=== PATIENT | female | born 1940 | race Two or more races ===

== ENCOUNTER 2023-12-05 23:30 | Observation (INO) | payer OTHER ==
[2023-12-06] MEDS ORDERED: ACETAMINOPHEN 325 MG TABLET (FP) ONE (00:55)
[2023-12-06] MEDS: ACETAMINOPHEN 500 MG TABLET (FP) PO ONE (01:00)
[2023-12-06 05:52] LABS: BASO % 0.5 % (0-2.0); EOS % 2.3 % (0-4.5); HEMOGLOBIN 12.9 GM/dL (10.7-15.3); INR 1.25 (0.83-1.09); LYMPH % 31.2 % (8-40); MCH 27.9 pg (25.7-33.7); MCHC 33.1 g/dl (32.0-36.0); MEAN CELL VOLUME 84.3 fl (80-96); MEAN PLT VOLUME 9.5 fl (7.5-11.1); MONO % 10.6 % (3.8-10.2); NEUT % 55.4 % (42.8-82.8); PLATELET COUNT 185 10^3/uL (134-434); PROTHROMBIN TIME (PATIENT) 14.3 SEC (9.7-13.0); RBC 4.62 M/mm3 (3.60-5.2); RDW 14.5 % (11.6-15.6); WHITE BLOOD COUNT 10.2 K/mm3 (4.0-10.0)
[2023-12-06 05:55] LABS: ACTIVATED PTT 32.4 SECONDS (25.2-36.5)
[2023-12-06 06:12] LABS: POTASSIUM 4.8 mmol/L (3.5-5.1)
[2023-12-06 06:15] LABS: ALBUMIN 3.2 g/dl (3.4-5.0); BLOOD UREA NITROGEN 22.9 mg/dL (7-18)
[2023-12-06 06:20] LABS: BILIRUBIN,TOTAL 0.3 mg/dL (0.2-1); TOT PROT 7.9 g/dl (6.4-8.2)
[2023-12-06] MEDS ORDERED: amLODIPine BESYLATE 5 MG TABLET (FP) ONE (07:11)
[2023-12-06] MEDS: amLODIPine BESYLATE 5 MG TABLET (FP) PO ONE (07:24)
[2023-12-06] MEDS ORDERED: ACETAMINOPHEN 325 MG TABLET (FP) PO PRN (09:07)
[2023-12-06] MEDS: ENOXAPARIN NA (PORCINE) 40 MG/0.4 ML DISP.SYRIN SQ SCH (10:32)
[2023-12-06 14:06] VITALS: BMI 32.8
[2023-12-06] MEDS: ATORVASTATIN CA 10 MG TABLET (FP) PO SCH (21:21)
[2023-12-07] MEDS: LOSARTAN 50MG/HCTZ 12.5MG 1 TAB PO SCH (09:27)
[2023-12-07 15:25] VITALS: BP 135/74; PULSE 65; RESP 18; TEMP 97.6
== END 2023-12-07 16:23 | disposition home or self-care (01) ==
LOC: JER 23:30 → JERBED 12-06 07:58 → UNDOADMOB 12-06 07:58 → INTOOBSV 12-06 07:58 → JERBED 12-06 09:06 → J8W 12-06 09:10
PROVIDERS: ADMIT Internal Medicine; ATTEND Nurse Practitioner Family
PROC: 3E023GC Introduction of Other Therapeutic Substance into Muscle, Percutaneous Approach (ICD-10-PCS; principal; 2023-12-06)
DX: I10 Essential (primary) hypertension (principal); E78.5 Hyperlipidemia, unspecified; K21.9 Gastro-esophageal reflux disease without esophagitis; M79.652 Pain in left thigh; Z99.89 Dependence on other enabling machines and devices; W18.39XA Other fall on same level, initial encounter; Y93.89 Activity, other specified; Y92.89 Other specified places as the place of occurrence of the external cause
CPT/HCPCS: 36415; 71045-TC-FY; 73502-TC-LT-FY; 73552-TC-LT-FY; 73560-TC-LT-FY; 80053; 85025; 85610; 85730; 86850; 86900; 86901; 93005; 93010; 96372; 97116-GP; 97161-GP; 99285-25; G0378